=== PATIENT | female | born 1965 | race Caucasian/White ===

== ENCOUNTER 2017-08-14 06:21 | Day surgery (SDC) | payer BC ==
[2017-08-07 09:14] VITALS: BMI 34.3
--- NOTE | 2017-08-14 01:52 | HP ---
HISTORY OF PRESENT ILLNESS: Ms. Polk is a 52-year-old woman who presents for evaluation of right-s ided interscapular posterior neck pain. She describes it as C6 radiculopathy. The biceps in the ant erior forearm of the right arm down into the hands. She has had one epidural steroid injection which she did not feel helped a great deal. MRI from [facility] reveals a large disk osteophyte comple x to the right at C6-C7 which could potentially match her symptoms. I discussed with the distributio n of pain that I would typically expect is different than what she appears to have and then she expre sses that at times it seems to move a little more lateral and perhaps posterior and at times it is fatima rd for her to say definitively where the pain and numbness is. She also reports that leaning forward and using a mouse at work seems to amplify her symptoms, she has reached to a point where she would prefer to talk about surgery if possible. PAST MEDICAL HISTORY: Significant for MS and Sjogren's. PAST SURGICAL HISTORY: TMJ, hysterectomy and rotator cuff, unspecified laterality. CURRENT MEDICATIONS: Nortriptyline. ALLERGIES: CODEINE, TEGRETOL and NEURONTIN. SOCIAL HISTORY: Patient denies smoking, but does admit to 1-3 alcoholic drinks per week. PHYSICAL EXAMINATION: GENERAL: The patient is alert and oriented x3. NEUROLOGIC: Her gait is normal. She is nonataxic. EXTREMITIES: Motor exam is normal. She has a negative Spurling's maneuver. ASSESSMENT: Cervical radiculopathy. PLAN: Dr. Osborne met with the patient, reviewed imaging and ultimately advocated for a C6-C7 ACDF. H e explained to the patient the risks, benefits, and alternatives to the procedure. The patient expre ssed understanding and would like to move forward with surgery as discussed. I do believe the patien t is mentally competent and capable of making medical decisions for herself and we will move forward with surgery as planned. Norberto Saldivar PA-C, dictating for Raza Osborne M.D.
[2017-08-14] MEDS ORDERED: CEFAZOLIN/Water 2 GM/20 ML SYRINGE ONE ×2 (08:17→14:21)
[2017-08-14] MEDS ORDERED: Midazolam HCl 2 mg/2 ml Vial ONE (08:26)
[2017-08-14] MEDS ORDERED: Fentanyl 100 MCG/2 ML VIAL ONE ×2 (09:44→11:02)
--- NOTE | 2017-08-14 10:59 | OP ---
DATE OF PROCEDURE: 08/14/2017 SURGEON: Raza Osborne M.D. PROGRAMS DIRECTOR: Norberto Saldivar PA-C INDICATION: Pain. DIAGNOSIS: Cervical radiculopathy. PROCEDURE: Anterior cervical discectomy and fusion C6-7. ANESTHESIA: General. TECHNIQUE: The patient was brought into the operating room and placed under general anesthesia. She was placed on the table in supine position. A transverse incision was planned over the lateral aspe ct of the neck on the right. After prepping and draping and after an appropriate operative pause, th e incision was created. The soft tissues were identified and the platysma muscle incised. A blunt t issue plane anterior to the sternocleidomastoid muscle was used to gain access to the prevertebral sp chayito. Self-retaining retractors were placed in the wound for optimal exposure. After confirming the appropriate level, an annulotomy was performed in the C6-7 disk space. All disk material as well as anterior and posterior osteophytes were removed. After complete decompression, a 7 mm lordotic PEEK cage packed with allograft and autograft material was placed within the interbody space. An anterior cervical plate was then fashioned to the front of the spine and secured with a total of 4 fixed scre ws. Midline and lateral structures were inspected and found to be free from significant trauma. The wound was irrigated. Hemostasis was maintained throughout. The wound was then closed in anatomic l danielson and a pressure dressing was applied. There were no known procedural complications.
[2017-08-14] MEDS ORDERED: Ketorolac Tromethamine 30 MG/ML VIAL ONE (15:25)
[2017-08-14] MEDS ORDERED: Dexamethasone 20 MG/5 ML VIAL ONE (15:25)
[2017-08-14] MEDS ORDERED: Glycopyrrolate 0.2 MG/ML 5 ML SYRINGE ONE (15:25)
[2017-08-14] MEDS ORDERED: Ondansetron HCl/PF 4 MG/2 ML Vial ONE (15:25)
[2017-08-14] MEDS ORDERED: PROPOFOL 200 MG/20 ML VIAL ONE (15:25)
[2017-08-14] MEDS ORDERED: Succinylcholine Chloride 20 MG/ML 10 ml SYRINGE FS ONE (15:25)
== END 2017-08-14 15:10 | disposition home or self-care (01) ==
LOC: SDC 06:21
PROVIDERS: ATTEND Neurological Surgery
PROC: 0RG20A0 Fusion of 2 or more Cervical Vertebral Joints with Interbody Fusion Device, Anterior Approach, Anterior Column, Open Approach (ICD-10-PCS; principal; 2017-08-14)
DX: M54.12 Radiculopathy, cervical region (principal); Z88.5 Allergy status to narcotic agent
CPT/HCPCS: 76001; 96374; C1713; C1776; J1100; J1885; J2250; J2270; J2405; J2704; J3010

== ENCOUNTER 2017-09-26 13:31 | Outpatient (CLI) | payer BC ==
--- NOTE | 2017-09-26 15:16 | RAD ---
FOUR VIEWS CERVICAL SPINE: 09/26/2017 HISTORY: Cervical radiculopathy. Prior cervical spine surgery. COMPARISON: 08/12/2013 FINDINGS: There is anterior diskectomy and fusion hardware at C6-C7. Minimal anterolisthesis is noted at C2-C3 measuring 2 mm, at C3-C4 measuring 2 mm, and at C4-C5 measu ring 3 mm. There is disk space narrowing with anterior and posterior osteophyte formation at C5-C6. Prevertebral soft tissues appear within normal limits. No evidence for hardware failure. Open-mout h odontoid view and Fuchs view demonstrate normal C1-C2 articulation and dens. IMPRESSION: Degenerative and postoperative change within the cervical spine, as described above. POS: [facility]
== END 2017-09-26 13:32 | disposition home or self-care (01) ==
LOC: TBSIIMAG 13:31
PROVIDERS: ATTEND Neurological Surgery
DX: M47.22 Other spondylosis with radiculopathy, cervical region (principal); Z98.890 Other specified postprocedural states
CPT/HCPCS: 72040